=== PATIENT | male | born 1975 | race Hispanic/Latino ===

== ENCOUNTER → 2020-12-04 | Outpatient (CLI) | payer OTHER ==
[~2020-12-04] MED LIST: COVID-19 VACC, MRNA(MODERNA)/PF 100 MCG/0.5 ML VIAL IM ONE
== END | disposition home or self-care (01) ==
LOC: VACCPMC 16:45
DX: Z23 Encounter for immunization (principal); Z20.822 Contact with and (suspected) exposure to COVID-19
CPT/HCPCS: 91301

== ENCOUNTER → 2021-01-01 | Outpatient (CLI) | payer OTHER | END | disposition home or self-care (01) | LOC: VACCPMC 09:00 | DX: Z23 Encounter for immunization (principal); Z20.822 Contact with and (suspected) exposure to COVID-19 | CPT/HCPCS: 91301 ==

== ENCOUNTER 2023-01-06 11:44 | Emergency (ER) | payer SELFPAY ==
[~2023-01-06] VITALS: Ht 157.5 cm; Wt 77.1 kg
[2023-01-06] MEDS ORDERED: METHOCARBAMOL750 MG PO (12:33)
[2023-01-06] MEDS ORDERED: IBUPROFEN600 MG PO (12:33)
[2023-01-06] MEDS ORDERED: MEDROL4 M2 PO (12:33)
[2023-01-06 12:38] VITALS: BP 135/87
[2023-01-06] MEDS ORDERED: DEXAMETHASONE SOD PHOS 10 MG/1 ML VIAL IM ONE (12:45)
[2023-01-06] MEDS ORDERED: KETOROLAC TROMETHAMINE 60 MG/2 ML VIAL IM ONE (12:45)
== END 2023-01-06 12:55 | disposition home or self-care (01) ==
LOC: ER 11:55
DX: M54.12 Radiculopathy, cervical region (principal)
CPT/HCPCS: 99282; J1100; J1885